=== PATIENT | male | born 1985 | race Caucasian/White ===

== ENCOUNTER 2020-06-29 00:26 | Emergency (ER) | payer MEDICARE, MEDICAID ==
[~2020-06-29] VITALS: Ht 170.2 cm; Wt 63.0 kg
[~2020-06-29 00:26] MED LIST: DIPH-423 PO; DOXY100C2 PO; FAMO-1 PO; HYDR28CR14 TP; L. R1CAP4 PO; PRED20TA PO
[2020-06-29 00:29] VITALS: BP 174/117
== END 2020-06-29 01:19 | disposition home or self-care (01) ==
LOC: ER 00:27
DX: R21 Rash and other nonspecific skin eruption (principal); T36.4X5A Adverse effect of tetracyclines, initial encounter; R42 Dizziness and giddiness; Z86.69 Personal history of other diseases of the nervous system and sense organs; Z88.0 Allergy status to penicillin; Z88.1 Allergy status to other antibiotic agents; Z88.8 Allergy status to other drugs, medicaments and biological substances; Z79.899 Other long term (current) drug therapy; Y92.89 Other specified places as the place of occurrence of the external cause
CPT/HCPCS: 99282

== ENCOUNTER 2020-09-22 06:24 | Inpatient (IN) | payer MEDICARE, MEDICAID ==
[~2020-09-22] VITALS: Ht 170.2 cm; Wt 70.0 kg
[~2020-09-22 06:24] MED LIST changes: -DOXY100C2 PO
[2020-09-22] MEDS ORDERED: normal saline 1000ML IV soln IV ONE (06:50)
[2020-09-22] MEDS ORDERED: NO HOME MEDS ×2 (06:51→12:21)
[2020-09-22] MEDS ORDERED: iohexol 300mg/ml 100ml inj. ONE (07:19)
[2020-09-22 08:20] LABS: CLARITY,URINE CLEAR (Clear); COLOR,URINE STRAW (Yellow); GLUCOSE, URINE NEGATIVE (Neg); KETONES,URINE NEGATIVE (Neg); LEUKOCYTE ESTERASE ,URINE NEGATIVE (Neg); NITRITES, URINE NEGATIVE (Neg); OCCULT BLOOD,URINE NEGATIVE (Neg); PROTEIN,URINE NEGATIVE (Neg); UROBILINOGEN,URINE 0.2 E.U/dL (0.2-1.0)
[2020-09-22 08:28] LABS: UA COLLECTION TYPE NON-SPECIFIED
[2020-09-22 08:34] LABS: BASOPHILS % (AUTO) 0.1 % (0-1); EOSINOPHILS # (AUTO) 0.4 X10'3 (0-0.9); EOSINOPHILS % (AUTO) 2.6 % (0-6); HEMATOCRIT 42.1 % (42.0-52.0); HEMOGLOBIN 14.4 g/dl (14.0-17.9); LYMPHOCYTES # (AUTO) 0.2 X10'3 (1.1-4.8); LYMPHOCYTES % (AUTO) 1.5 % (21-51); MEAN CORPUSCULAR HEMOGLOBIN 32.1 PG (27.0-31.0); MEAN CORPUSCULAR HGB CONC 34.2 g/dL (33.0-36.5); MEAN CORPUSCULAR VOLUME 93.8 FL (78-98); MEAN PLATELET VOLUME 8.3 FL (7.4-10.4); MONOCYTES # (AUTO) 0.3 X10'3 (0-0.9); NEUTROPHILS # (AUTO) 14.1 X10'3 (1.8-7.7); NEUTROPHILS % (AUTO) 93.8 % (42-75); PLATELET COUNT 156 X10'3 (140-440); RED BLOOD COUNT 4.49 X10'6 (4.70-6.10); RED CELL DISTRIBUTION WIDTH 13.3 % (11.5-14.5)
[2020-09-22 08:49] LABS: ALANINE AMINOTRANSFERASE 62 U/L (12-78); ALBUMIN 3.5 G/DL (3.4-5.0); ALBUMIN/GLOBULIN RATIO 1.3 (1.1-1.5); ALKALINE PHOSPHATASE 96 IU/L (46-116); ANION GAP 13 (8-16); ASPARTATE AMINO TRANSFERASE 56 U/L (10-37); BILIRUBIN,TOTAL 1.5 MG/DL (0.1-1.0); BLOOD UREA NITROGEN 11 MG/DL (7-18); BUN/CREATININE RATIO 8.8 (5.4-32.0); CALCIUM 7.9 MG/DL (8.5-10.1); CHLORIDE 103 MMOL/L (99-107); CREATININE 1.25 MG/DL (0.60-1.10); GLUCOSE 105 MG/DL (70-104); MAGNESIUM 1.4 MG/DL (1.5-2.4); POTASSIUM 3.6 MMOL/L (3.5-5.1); SODIUM 137 MMOL/L (135-145); TOTAL PROTEIN 6.3 G/DL (6.4-8.2); eGFR 65 ML/MIN
[2020-09-22] MEDS ORDERED: methylPREDNISolone sod succ 125mg/2ml vial IV ONE (09:10)
[2020-09-22] MEDS ORDERED: normal saline 1000ML IV soln IVB ONE (09:15)
[2020-09-22] MEDS ORDERED: acetaminophen 325mg tablet PO PRN (10:50)
[2020-09-22] MEDS ORDERED: mag hydrox/Alum hydrox/simeth 30ml oral suspension PO PRN (10:50)
[2020-09-22] MEDS ORDERED: magnesium hydroxide 30ml (MOM) UD suspension PO PRN (10:50)
[2020-09-22] MEDS ORDERED: ondansetron/PF 4mg/2ml inj IV PRN (10:50)
[2020-09-22] MEDS: famotidine/PF 10 mg/ml inj IV SCH (12:19)
[2020-09-22] MEDS: normal saline 1000ml 1,000 ML IV SCH ×2 (12:20→14:22)
[2020-09-22 14:15] VITALS: BP 120/96
--- NOTE | 2020-09-22 14:15 | NUR ---
Pt transferred from ER to 4022b via gurney to bed. VSS. Red raised rash with pinpoint spots and mild swelling noted to chest/back/torso and all 4 extremities. Pt reported mild back ache but declined pain meds at this time.
[2020-09-22] MEDS: diphenhydrAMINE 50 mg/ml inj IV SCH (16:40)
[2020-09-22 18:00] VITALS: BP 124/76
--- NOTE | 2020-09-22 18:30 | NUR ---
Patient in room [facility]TH[facility] 4022. I have received report from Juve BROOKS & Tresa BROOKS and had the opportunity to ask questions and assume patient care.
--- NOTE | 2020-09-22 19:15 | NUR ---
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 Admitting to daily drinking 6-8+ beers, hx of seizures. sinus tach 120's. ETOH protocol? Please advise -Yani #[id number]
--- NOTE | 2020-09-22 20:00 | NUR ---
Pt's fiance is Kathy & Alexandra
[2020-09-22] MEDS: heparin, porcine 5000 units/ml vial SQ SCH (20:50)
[2020-09-22] MEDS: methylPREDNISolone sod succ/PF 40mg inj. IV SCH (20:50)
[2020-09-22] MEDS ORDERED: dextrose 50%-water 50ml dispensing syringe IV PRN (21:00)
[2020-09-22] MEDS ORDERED: haloperidol lactate 5mg/ml inj IM PRN (21:00)
[2020-09-22] MEDS ORDERED: potassium Cl 20 mEq SR tablet PO PRN ×2 (21:00)
[2020-09-22] MEDS ORDERED: haloperidol 5mg tablet PO PRN (21:00)
[2020-09-22] MEDS ORDERED: thiamine 100mg/ml 2ml inj. IV ONE (21:00)
--- NOTE | 2020-09-22 21:00 | NUR ---
called MD and received orders for electrolyte protocol, ETOH protocol and pain medication.
[2020-09-22 22:00] VITALS: BP 125/67
--- NOTE | 2020-09-22 22:10 | NUR ---
Unable to scan meds. Pt had Tylenol 650mg PO & Ativan 2mg IVP @ same time, 2210.
[2020-09-22] MEDS: LORazepam 2 mg/ml vial IV PRN (23:06)
[2020-09-22] MEDS: HYDROcodone/acetaminophen 5mg/325mg tablet PO PRN (23:06)
[2020-09-23] MEDS: normal saline 1000ml 1,000 ML IV SCH ×3 (00:06→19:32)
[2020-09-23] MEDS: diphenhydrAMINE 50 mg/ml inj IV SCH ×4 (00:13→23:39)
[2020-09-23] MEDS: LORazepam 2 mg/ml vial IV PRN ×4 (03:10→19:48)
[2020-09-23] MEDS ORDERED: magnesium Cl slow-release 64mg tablet PO PRN (03:35)
[2020-09-23] MEDS: HYDROcodone/acetaminophen 5mg/325mg tablet PO PRN (05:19)
[2020-09-23 06:00] VITALS: BP 127/78
--- NOTE | 2020-09-23 06:28 | NUR ---
Problems reprioritized. Patient report given, questions answered & plan of care reviewed with Analilia BROOKS.
[2020-09-23] MEDS: methylPREDNISolone sod succ/PF 40mg inj. IV SCH ×2 (07:26→19:59)
[2020-09-23] MEDS: famotidine/PF 10 mg/ml inj IV SCH (07:32)
[2020-09-23] MEDS: heparin, porcine 5000 units/ml vial SQ SCH ×2 (07:43→20:03)
[2020-09-23 07:57] LABS: BASOPHILS % (AUTO) 0.1 % (0-1); EOSINOPHILS % (AUTO) 0 % (0-6); HEMATOCRIT 32.6 % (42.0-52.0); HEMOGLOBIN 11.5 g/dl (14.0-17.9); LYMPHOCYTES # (AUTO) 0.4 X10'3 (1.1-4.8); LYMPHOCYTES % (AUTO) 1.9 % (21-51); MEAN CORPUSCULAR HEMOGLOBIN 32.8 PG (27.0-31.0); MEAN CORPUSCULAR HGB CONC 35.3 g/dL (33.0-36.5); MEAN CORPUSCULAR VOLUME 93.1 FL (78-98); MONOCYTES # (AUTO) 0.4 X10'3 (0-0.9); NEUTROPHILS # (AUTO) 19.8 X10'3 (1.8-7.7); PLATELET COUNT 152 X10'3 (140-440); RED CELL DISTRIBUTION WIDTH 13.4 % (11.5-14.5); WHITE BLOOD COUNT 20.6 X10'3 (4.5-11.0)
[2020-09-23] MEDS ORDERED: K and/or MAG REPLACEMENT MC SCH (08:00)
[2020-09-23 08:12] LABS: ALBUMIN 2.7 G/DL (3.4-5.0); ANION GAP 13 (8-16); BLOOD UREA NITROGEN 9 MG/DL (7-18); BUN/CREATININE RATIO 8.1 (5.4-32.0); CHLORIDE 108 MMOL/L (99-107); CREATININE 1.11 MG/DL (0.60-1.10); GLUCOSE 158 MG/DL (70-104); MAGNESIUM 1.6 MG/DL (1.5-2.4); POTASSIUM 3.3 MMOL/L (3.5-5.1); SODIUM 142 MMOL/L (135-145); TOTAL CARBON DIOXIDE 21.4 MMOL/L (24-32); eGFR 75 ML/MIN
[2020-09-23 09:05] LABS: NUCLEATED RED BLOOD CELLS 1 /100WBC (0-0); TOTAL CELLS COUNTED 100
[2020-09-23 09:06] LABS: PLATELET ESTIMATE NORMAL; TOXIC GRANULATION 1+
[2020-09-23] MEDS ORDERED: POTASSIUM BICARB 20meq eff tab 20 MEQ TABLET.EFF PO PRN (09:19)
[2020-09-23] MEDS: POTASSIUM BICARB 20meq eff tab 20 MEQ TABLET.EFF PO PRN ×3 (09:58→19:59)
[2020-09-23 10:00] VITALS: BP 132/81
[2020-09-23] MEDS ORDERED: pneumococcal 23-VAL P-sac vacc 25 mcg/0.5ml vial IMVAC ONE (10:00)
--- NOTE | 2020-09-23 10:46 | NUR ---
Spoke with Dr. Cotton about patient cough and fever, does not want to test for COVID at this time. Made MD aware of patients hiccups and nausea states ativan will help. Made MD aware of patient hallucinating- states its ETOH withdraw, ativan will help aswell. No changes in orders at this time.
[2020-09-23] MEDS ORDERED: thiamine inj. 100 MG, MVI, adult No.4 with vit. K 10 ML in dextrose 5% water 500ml 489 ML IV SCH ×3 (13:35)
[2020-09-23] MEDS ORDERED: thiamine inj. 100 MG, MVI, adult No.4 with vit. K 10 ML in dextrose 5% water 500ml 500 ML IV SCH ×6 (13:38→13:39)
--- NOTE | 2020-09-23 15:28 | NUR ---
Malnutrition consult re: poor nutrition d/t nausea. Pt eating 100% regular diet. No loss in wt. Addendum: 09/23/20 at [address] Amended: Links added.
[2020-09-23 16:15] VITALS: BP 136/75
--- NOTE | 2020-09-23 16:18 | NUR ---
PAGER ID: [phone] MESSAGE: [id number] Alfredo Brush- Can we get RT eval and treat? Patient is wheezing. Analilia [id number]
--- NOTE | 2020-09-23 16:21 | NUR ---
Paged RT for respiratory treatment.
[2020-09-23 18:00] VITALS: BP 118/80
--- NOTE | 2020-09-23 18:13 | NUR ---
Problems reprioritized. Patient report given, questions answered & plan of care reviewed with Alexandria BROOKS.
--- NOTE | 2020-09-23 18:59 | NUR ---
Patient in room ORTH[facility] 4022. I have received report from Analilia BROOKS and had the opportunity to ask questions and assume patient care.
[2020-09-23 22:00] VITALS: BP 132/74
[2020-09-24] MEDS: LORazepam 2 mg/ml vial IV PRN ×4 (01:43→06:39)
[2020-09-24] MEDS: normal saline 1000ml 1,000 ML IV SCH (05:11)
[2020-09-24 05:53] LABS: BASOPHILS # (AUTO) 0.1 X10'3 (0-0.2); BASOPHILS % (AUTO) 0.2 % (0-1); EOSINOPHILS % (AUTO) 0 % (0-6); HEMOGLOBIN 11.7 g/dl (14.0-17.9); LYMPHOCYTES # (AUTO) 0.7 X10'3 (1.1-4.8); LYMPHOCYTES % (AUTO) 2.6 % (21-51); MEAN CORPUSCULAR HGB CONC 35.6 g/dL (33.0-36.5); MEAN CORPUSCULAR VOLUME 92.8 FL (78-98); MEAN PLATELET VOLUME 8.7 FL (7.4-10.4); MONOCYTES # (AUTO) 1.1 X10'3 (0-0.9); MONOCYTES % (AUTO) 4.2 % (2-12); NEUTROPHILS # (AUTO) 23.5 X10'3 (1.8-7.7); PLATELET COUNT 182 X10'3 (140-440); RED BLOOD COUNT 3.55 X10'6 (4.70-6.10); RED CELL DISTRIBUTION WIDTH 13.4 % (11.5-14.5)
[2020-09-24 06:00] VITALS: BP 140/84
[2020-09-24 06:00] LABS: WHITE BLOOD COUNT 25.2 X10'3 (4.5-11.0)
[2020-09-24 06:17] LABS: PLATELET ESTIMATE NORMAL; TOTAL CELLS COUNTED 100
[2020-09-24 06:24] LABS: ALBUMIN 2.7 G/DL (3.4-5.0); ANION GAP 9 (8-16); BLOOD UREA NITROGEN 11 MG/DL (7-18); BUN/CREATININE RATIO 11.3 (5.4-32.0); CALCIUM 8.8 MG/DL (8.5-10.1); CHLORIDE 109 MMOL/L (99-107); CREATININE 0.97 MG/DL (0.60-1.10); GLUCOSE 157 MG/DL (70-104); MAGNESIUM 2.1 MG/DL (1.5-2.4); POTASSIUM 3.8 MMOL/L (3.5-5.1); SODIUM 141 MMOL/L (135-145); TOTAL CARBON DIOXIDE 23.4 MMOL/L (24-32); eGFR 87 ML/MIN
--- NOTE | 2020-09-24 06:37 | NUR ---
Problems reprioritized. Patient report given, questions answered & plan of care reviewed with Analilia BROOKS.
--- NOTE | 2020-09-24 06:39 | NUR ---
Patient given ativan- anxious, having hallucinations, crying , wanting to leave AMA.
--- NOTE | 2020-09-24 07:00 | NUR ---
Spoke with Dr. Frank, made aware that patient wants to leave AMA, and that patient is paranoid, having delisions and wants to leave. States that we cannot hold patient. If he signs out AMA we have to let him go. Patient know his name and date of , why he is here and wants to leave despite medical advice.
--- NOTE | 2020-09-24 07:04 | NUR ---
PAGER ID: [phone] MESSAGE: [id number] Alfredo Brush- patient is hallucinating, paranoid, and wants to leave AMA. Ativan 2mg IV has been given a few times. Pulled out IV. Analilia [id number]
--- NOTE | 2020-09-24 07:15 | NUR ---
Spoke with patients sena, made aware that patient is trying to leave, she is talking with patient.
--- NOTE | 2020-09-24 07:20 | NUR ---
Patient has signed AMA, made patient aware that we can help him , still wants to leave AMA.
--- NOTE | 2020-09-24 07:24 | NUR ---
Patient states that he "cant stand it anymore, has been here too long" wants to leave.
--- NOTE | 2020-09-24 07:52 | NUR ---
Patient left AMA, forgot pants and wallet, will put in lost and found.
--- NOTE | 2020-09-24 07:55 | NUR ---
Patients wallet and pants were taken down to patient by staff, as patient was still in parking lot.
[2020-09-24] MEDS ORDERED: LORazepam 2 mg/ml vial IV PRN (21:00)
[2020-09-24] MEDS ORDERED: LORazepam 1 MG tablet PO PRN (21:00)
[2020-09-26] MEDS ORDERED: LORazepam 2 mg/ml vial IV PRN (21:00)
[2020-09-26] MEDS ORDERED: LORazepam 1 MG tablet PO PRN (21:00)
== END 2020-09-24 07:52 | disposition left against medical advice (07) | DRG 607 ==
LOC: ER 06:25 → ED HOLD 10:48 → ORTHO 4S 14:11
PROVIDERS: ADMIT Family Medicine; ATTEND Family Medicine
PROC: BN251ZZ Computerized Tomography (CT Scan) of Facial Bones using Low Osmolar Contrast (ICD-10-PCS; principal; 2020-09-22)
DX: R21 Rash and other nonspecific skin eruption (principal); F10.231 Alcohol dependence with withdrawal delirium; L51.1 Stevens-Johnson syndrome; Z53.29 Procedure and treatment not carried out because of patient's decision for other reasons; T36.8X5A Adverse effect of other systemic antibiotics, initial encounter; G40.909 Epilepsy, unspecified, not intractable, without status epilepticus; K04.7 Periapical abscess without sinus; Z88.1 Allergy status to other antibiotic agents; Z88.0 Allergy status to penicillin; Y92.89 Other specified places as the place of occurrence of the external cause; R00.0 Tachycardia, unspecified
CPT/HCPCS: 36415; 70487; 71045; 80048; 80053; 81003; 82948; 83605; 83735; 84145; 85007; 85025; 87040; 87081; 96374; 99285; G0378; J1200; J1644; J2060; J2920; J2930; J3411; J3490; J7030; J7060; Q9967

== ENCOUNTER 2022-05-03 05:24 | Emergency (ER) | payer MEDICARE, MEDICAID ==
[~2022-05-03] VITALS: Ht 170.2 cm; Wt 70.8 kg
[~2022-05-03 05:24] MED LIST changes: -DIPH-423 PO; -FAMO-1 PO; -HYDR28CR14 TP; -L. R1CAP4 PO; +NO HOME MEDS; -PRED20TA PO
[2022-05-03] MEDS ORDERED: HYDROcodone/acetaminophen 5mg/325mg tablet PO ONE (09:25)
[2022-05-03] MEDS ORDERED: HYDR-3965 PO (09:28)
[2022-05-03] MEDS ORDERED: NAPR-56 PO (09:28)
[2022-05-03 09:33] VITALS: BP 147/85
== END 2022-05-03 10:00 | disposition home or self-care (01) ==
LOC: ER 05:25
DX: S52.125A Nondisplaced fracture of head of left radius, initial encounter for closed fracture (principal); S60.417A Abrasion of left little finger, initial encounter; M25.532 Pain in left wrist; M79.642 Pain in left hand; Z86.69 Personal history of other diseases of the nervous system and sense organs; Z72.89 Other problems related to lifestyle; Z88.0 Allergy status to penicillin; Z88.1 Allergy status to other antibiotic agents; Z79.899 Other long term (current) drug therapy; W19.XXXA Unspecified fall, initial encounter; Y93.89 Activity, other specified; Y92.89 Other specified places as the place of occurrence of the external cause; Y99.8 Other external cause status
CPT/HCPCS: 29105; 73070; 73130; 99284; A4565; A6449